=== PATIENT | female | born 1965 | race Two or more races ===

== ENCOUNTER 2024-09-25 15:57 | Emergency (ER) | payer OTHER ==
[~2024-09-25] VITALS: Ht 160 cm; Wt 67.1 kg
[2024-09-25] MEDS ORDERED: SYNTHROID137 MCG PO (16:23)
[2024-09-25] MEDS ORDERED: SINVALTA (16:28)
[2024-09-25] MEDS ORDERED: CLONOPIN (16:28)
[2024-09-25] MEDS ORDERED: METFORMIN HCL1000 M2 PO (16:30)
[2024-09-25] MEDS ORDERED: ATORVASTATIN CA20 MG (16:30)
[2024-09-25] MEDS ORDERED: FAMOTIDINE/PF 20 MG in 0.9 % SODIUM CHLORIDE 8 ML IV PUSH STA (16:53)
[2024-09-25] MEDS ORDERED: METHYLPREDNISOLONE SOD SUCC 125 MG VIAL IV ONE (17:00)
[2024-09-25] MEDS ORDERED: KETOROLAC TROMETHAMINE 30 MG VIAL IV ONE (17:00)
[2024-09-25] MEDS ORDERED: 0.9 % SODIUM CHLORIDE 1,000 ML IV SCH (17:00)
[2024-09-25 17:17] LABS: BASO % 0.7 % (0.1-1.2); EOS # 0.25 (0.04-0.54); EOS % 3.3 % (0.7-7.0); LYMPH # 3.03 (1.18-3.74); LYMPH % 39.9 % (19.3-53.1); MEAN PLATELET VOLUME 8.80 fl (9.4-12.4); MONO # 0.60 (0.24-0.82); MONO % 7.9 % (4.7-12.5); NEUT # 3.65 (1.56-6.13); NEUT % 47.9 % (34.0-71.1); RED CELL DISTRIBUTION WIDTH 13.0 % (11.6-14.4)
[2024-09-25 17:49] LABS: ALT/SGPT 24 U/L (12-78); AST/SGOT 18 U/L (15-37); BILIRUBIN TOTAL 0.47 mg/dL (0.3-1.2); BILIRUBIN,CONJUGATED < 0.10 mg/dL (0.0-0.2); BUN CREA RATIO 11 (7.0-25.0); CREATININE SERUM 1.00 mg/dL (0.55-1.02); GFR 56.37; GLOBULINA 3.9 G/DL (2.4-3.5); GLUCOSE FASTING 82 mg/dL (65-100); OSMOLALITY SERUM 278 MOSM/KG (275-295)
[2024-09-25] MEDS ORDERED: BARIUM SULFATE 450 ML ORAL.SUSP PO ONE (18:45)
[2024-09-25] MEDS ORDERED: MAGNESIUM HYDROXIDE 400 MG/5 ML ML PO ONE (23:45)
[2024-09-25] MEDS ORDERED: MINERAL OIL 30 ML BLIST.PACK PO ONE (23:45)
[2024-09-25] MEDS ORDERED: LACTULOSE 20 G/30 ML BLIST.PACK PO ONE (23:45)
== END 2024-09-26 00:07 | disposition home or self-care (01) ==
LOC: ER 15:57
PROVIDERS: General Practice
DX: K59.00 Constipation, unspecified (principal); K29.70 Gastritis, unspecified, without bleeding; R14.0 Abdominal distension (gaseous); I10 Essential (primary) hypertension; E03.8 Other specified hypothyroidism; E11.9 Type 2 diabetes mellitus without complications; Z79.84 Long term (current) use of oral hypoglycemic drugs
CPT/HCPCS: 36415; 74022; 74177; Q9965